=== PATIENT | female | born 1950 | race Caucasian/White ===

== ENCOUNTER 2019-03-08 06:08 | Day surgery (SDC) | payer MEDICARE, OTHER ==
[2019-03-08] MEDS: DICLOFENAC 0.1% 2.5 ML OPH LEFT EYE (07:00)
[2019-03-08] MEDS: MOXIFLOXACIN 0.5% 3 ML OPH LEFT EYE (07:00)
[2019-03-08] MEDS: CYCLOPENTOLATE 1% 2 ML OPH LEFT EYE (07:00)
[2019-03-08] MEDS: TROPICAMIDE 1% 15 ML OPH LEFT EYE (07:00)
[2019-03-08] MEDS: SOD CHLORIDE 0.9% 1,000 ML IV (07:01)
[2019-03-08] MEDS: PHENYLephrine 2.5% 15 ML OPH LEFT EYE (07:01)
[2019-03-08] MEDS: LIDOCAINE 1% (MPF) 10 ML INJ (07:03)
[2019-03-08] MEDS ORDERED: EPINEPHrine 1 MG INJ (07:04)
[2019-03-08] MEDS ORDERED: TOBRAMYCIN/DEXAMETH 3.5 GM OPH OINT (07:04)
[2019-03-08] MEDS ORDERED: TETRACAINE 0.5% 4 ML OPH (07:04)
[2019-03-08] MEDS ORDERED: MIDAZOLAM 1 MG/ML 2 ML INJ (07:24)
[2019-03-08] MEDS ORDERED: FENTAnyl 50 MCG/ML VIAL (07:24)
[2019-03-08] MEDS ORDERED: hydrALAzine 20 MG INJ (07:34)
[2019-03-08] MEDS ORDERED: hydrALAzine 20 MG INJ IV (08:00)
[2019-03-08] MEDS ORDERED: LABETALOL HCL 20MG INJ IV (08:00)
[2019-03-08] MEDS ORDERED: OXYCODONE/ACETAMINOPHEN (5/325) TAB PO ×2 (08:00)
[2019-03-08] MEDS ORDERED: FENTAnyl 50 MCG/ML VIAL IV ×2 (08:00)
[2019-03-08] MEDS ORDERED: ACETAMINOPHEN 500 MG TAB PO (08:00)
[2019-03-08] MEDS: ONDANSETRON 4 MG INJ IV (08:26)
[2019-03-08] MEDS: FENTAnyl 50 MCG/ML VIAL IV (08:26)
== END 2019-03-08 09:55 | disposition home or self-care (01) ==
LOC: SDS 06:08
DX: H25.12 Age-related nuclear cataract, left eye (principal); I10 Essential (primary) hypertension; E11.9 Type 2 diabetes mellitus without complications; E78.5 Hyperlipidemia, unspecified
CPT/HCPCS: 66984; 82962